=== PATIENT | male | born 1985 | race Caucasian/White ===

== ENCOUNTER 2021-04-30 10:24 | Emergency (ER) | payer OTHER ==
[~2021-04-30] VITALS: Ht 172.7 cm; Wt 68.0 kg
[2021-04-30 10:42] VITALS: BP 147/95
== END 2021-04-30 10:42 | disposition home or self-care (01) ==
LOC: M.ERS 10:24
DX: F41.1 Generalized anxiety disorder (principal); R53.1 Weakness